=== PATIENT | male | born 1985 ===

== ENCOUNTER 2024-07-01 21:40 | Emergency (ER) | payer SELFPAY ==
--- NOTE | 2024-07-01 21:41 | XRR_ITS ---
PROCEDURE INFORMATION: Exam: XR Chest Exam date and time: 07/01/2024 10:33 PM Age: 38 years old Clinical indication: Patient HX: Fever; Chest pressure TECHNIQUE: Imaging protocol: Radiologic exam of the chest. Views: 1 view. COMPARISON: No relevant prior studies available. FINDINGS: Lungs: Unremarkable. No consolidation. Pleural spaces: Unremarkable. No pleural effusion. No pneumothorax. Heart/Mediastinum: Unremarkable. No cardiomegaly. Bones/joints: Unremarkable. XR/XR chest 1V portable [id number] IMPRESSION: No acute findings.
[2024-07-01 21:46] VITALS: BP 158/94; PULSE 81; RESP 18; TEMP 37.2; O2SAT 98; BMI 22.4
[2024-07-01] MEDS: ketorolac 30 mg/mL INJ IM (22:59)
[2024-07-01 23:03] LABS: Covid PCR NEGATIVE (Negative); Influenza A NEGATIVE (Negative); Influenza B NEGATIVE (Negative); Respiratory Syncytial Virus Ce NEGATIVE (Negative)
--- NOTE | 2024-07-01 23:36 | W.ED.URI ---
HPI - URI/Sore Throat General: Chief Complaint: Upper Respiratory Infection Stated Complaint: fever, chest pressure Time Seen by Provider: 07/01/24 22:27 History of Present Illness: Patient is a non-Guyanese speaking 38-year-old male that presents to the emergency department with a friend. His friend translates for him. They report he has had a cough and congestion for 2 to 3 weeks. Patient states the cough is improved some but now has posterior chest wall pain when he coughs. They deny fever, chills, chest pain, shortness of breath, abdominal pain, nausea vomiting diarrhea They deny medical history Deny surgical history Related Data Previous Rx's Medication Instructions Recorded ketorolac 10 mg tablet 10 mg PO TID 3 days #9 tabs 07/01/24 Allergies Allergy/AdvReac Type Severity Reaction Status Date / Time No Known Allergies Allergy Verified 07/01/24 15:55 Review of Systems General: Reports: 10 or more systems reviewed and unremarkable except in HPI and below Physical Exam Const: COMMON NORMALS: no acute distress, patient oriented x3 and alert GENERAL APPEARANCE: cooperative ORIENTATION/CONSCIOUSNESS: Yes awake, Yes oriented to person, Yes oriented to place and Yes oriented to time HENMT: COMMON NORMALS: normocephalic and atraumatic HEAD & SCALP: normocephalic and atraumatic FACE & SINUS: normal facial exam MOUTH: Normal oral and palatal mucosa present THROAT: posterior oropharynx normal Eye: COMMON NORMALS: Equal, round and reactive pupils present, EOMs intact bilaterally, conjunctivae normal and no scleral icterus GENERAL EYE: appearance normal, both eyes and all related structures ALIGNMENT: Yes alignment normal PERIORBITAL: periorbital findings normal CONJUNCTIVA: Yes conjunctivae normal PUPIL: Yes Equal, round and reactive pupils present Neck/C-Spine: COMMON NORMALS: full ROM GENERAL: Yes normal visual inspection Lymph: LYMPHATIC: no lymphadenopathy noted Chest: COMMONS NORMALS: normal inspection of the chest Breast/axilla inspection: Yes no chest deformity, asymmetry, normal contours, no nodules, masses, tenderness Resp: COMMON NORMALS: normal respiratory effort, No retractions, No use of accessory muscles and clear to auscultation bilaterally EFFORT & INSPECTION: Yes able to speak in complete sentences and Yes symmetric chest movement AUSCULTATION: clear to auscultation bilaterally Cardio: COMMON NORMALS: regular rate, regular rhythm and Peripheral pulses 2+ throughout RATE: regular rate RHYTHM: regular rhythm PERIPHERAL PULSES: Peripheral pulses 2+ throughout GI: COMMON NORMALS: Normal to inspection, nondistended, normoactive bowel sounds present, Soft to palpation, non-tender and No hepatosplenomegaly present INSPECTION: Yes normal to inspection AUSCULTATION: Yes normoactive bowel sounds PALPATION: Yes Soft to palpation and Yes No hepatosplenomegaly present RECTAL EXAM: Yes deferred Extremity: COMMON NORMALS: normal to inspection GENERAL: Yes normal exam except as noted Neuro: COMMON NORMALS: patient oriented x3 SENSORIUM/ORIENTATION: Yes alert, Yes oriented to person, Yes oriented to place and Yes oriented to time CRANIAL NERVES: Yes CN normal except as noted Psych: COMMON NORMALS: mental status grossly normal, Normal thought process present, cooperative, activity/motor behavior normal, denies homicidal ideation and denies suicidal ideation THOUGHT PROCESS: Normal thought process present Skin: COMMON NORMALS: no rashes or lesions noted, no wounds and turgor normal GENERAL SKIN EXAM: no rashes or lesions noted and turgor normal Course Vital Signs: Vital signs: Vital Signs Temperature 98.9 F 07/01/24 21:46 Pulse Rate 81 07/01/24 21:46 Respiratory Rate 18 07/01/24 21:46 Blood Pressure 158/94 07/01/24 21:46 Pulse Oximetry 98 07/01/24 21:46 Oxygen Delivery Me thod Room Air 07/01/24 21:46 MDM - URI/Sore Throat Medical Decision Making Patient was evaluated in the emergency department today for posterior chest wall pain with cough. Patient underwent COVID influenza and RSV testing which was negative. He also underwent a chest x-ray to rule out pneumonia. XR negative for acute finding. Patient was treated in the emergency department with ketorolac. This appears to have helped some of his symptoms. Going to discharge him home on ketorolac for 3 days. He needs to follow-up with primary care if he is not better. He needs to return to the emergency department for new, concerning, worsening symptoms. Lab Data Laboratory Results Coronavirus (PCR) Negative (Negative) 07/01/24 21:55 Influenza A (PCR) Negative (Negative) 07/01/24 21:55 Influenza Type B (PCR) Negative (Negative) 07/01/24 21:55 RSV (PCR) Negative (Negative) 07/01/24 21:55 XR interpretation done by ED provider, pending radiology final review Discharge Plan Discharge Patient Disposition: Home Clinical Impression: Acute pleurisy without pleural effusion, Upper respiratory infection Condition: Stable Prescriptions: New ketorolac 10 mg tablet 10 mg PO TID 3 Days Qty: 9 0RF Discharge Orders: Discharge ED (Routine); Ordered 07/01/24 Ordered By: Hitesh Mendoza Discharge Diet: Advance as tolerated Discharge Activity: Resume usual activity Patient Instructions: Pleurisy (ED), Pain Management Coding Level of Care Code ED [employer] Pipe [employer]er for Elizabeth Leon
== END 2024-07-01 23:44 | disposition home or self-care (01) ==
PROVIDERS: Emergency Medicine; Emergency Provider Nurse Practitioner
DX: R09.1 Pleurisy (principal); J06.9 Acute upper respiratory infection, unspecified; Z11.52 Encounter for screening for COVID-19
CPT/HCPCS: 71045; 87637; 96372; 99284; J1885